=== PATIENT | female | born 1950 | race Caucasian/White ===

== ENCOUNTER 2018-08-08 08:59 | Emergency (ER) | payer OTHER ==
[2018-08-08 09:10] VITALS: BP 156/91; PULSE 72; TEMP 98.1; BMI 32.1
[2018-08-08] MEDS ORDERED: HEP B VIR RECOMB/HIB CONJ-MENG 0.5 ML VIAL IM ONE (09:20)
[2018-08-08] MEDS ORDERED: HEPATITIS B VIRUS VACCINE-PF 20 MCG/1ML PRE-FILLED SYRINGE IM ONE (09:29)
--- NOTE | 2018-08-08 09:29 | PDOC ---
Post Exposure HPI - General Chief Complaint: Blood/Body Fluid Exposure SJR Stated Complaint: STUCK WITH A NEEDLE Time Seen by Provider: 08/08/18 09:19 History Source: Patient Exam Limitations: Clinical Condition - History of Present Illness Initial Comments: 08/08/18 09:24 Patient with no significant past medical history fully immunized with negative immunity to hepatitis B present for hepatitis vaccines status post accidentally sticking herself with a needle while drawing blood from a . Patient reported mother's blood work shows negative HIV but hepatitis panel is not back and patient recent lab work shows nonimmune to hepatitis B. Report no bleeding to injury site 08/08/18 09:34 Timing: just prior to arrival Past History - Past Medical History Allergies/Adverse Reactions: Allergies Allergy/AdvReac Type Severity Reaction Status Date / Time No Known Allergies Allergy Verified 03/21/12 07:56 Home Medications: Ambulatory Orders No Home Medications 0 dose .ROUTE UTDICT 03/21/12 COPD: No Diabetes: No - Surgical History Cardiac Surgery: No Cholecystectomy: No Neurologic Surgery: Yes (myoectomy) - Immunization History Immunization Up to Date: No - Suicide/Smoking/Psychosocial Hx Smoking Status: No Smoking History: Never smoked Have you smoked in the past 12 months: No Number of Cigarettes Smoked Daily: 12 Information on smoking cessation initiated: No Hx Alcohol Use: No Drug/Substance Use Hx: No General Medical PMHX - Other General PMHX Cardiac Arrhythmia: No Peripheral Vascular Disease: No Review of Systems - Review of Systems Able to Perform ROS?: Yes Is the patient limited Mohawk proficient: No Constitutional: No: Chills, Fever, Malaise HEENTM: No: Symptoms Reported Respiratory: No: Symptoms reported Cardiac (ROS): No: Symptoms Reported ABD/GI: No: Symptoms Reported Musculoskeletal: No: Symptoms Reported Integumentary: Yes: Other (accidental sticking right thumb with needle. no bleeding) All Other Systems: Reviewed and Negative *Physical Exam - Vital Signs Last Vital Signs Temp Pulse Resp BP Pulse Ox 98.1 F 72 16 156/91 100 08/08/18 09:06 08/08/18 09:06 08/08/18 09:06 08/08/18 09:06 08/08/18 09:06 - Physical Exam Comments: 08/08/18 09:27 GENERAL: Well developed, well nourished. Awake and alert. No acute distress. HEENT: Normocephalic, atraumatic. PERRLA, EOMI. No conjunctival pallor. Sclera are non-icteric. Moist mucous membranes. Oropharynx is clear. NECK: Supple. Full ROM. CARDIOVASCULAR: Regular rate and rhythm. No murmurs, rubs, or gallops. Distal pulses are 2+ and symmetric. PULMONARY: No evidence of respiratory distress. Lungs clear to auscultation bilaterally. No wheezing, rales or rhonchi. ABDOMINAL: Soft. Non-tender. Non-distended. No rebound or guarding. No organomegaly. Normoactive bowel sounds. SKIN: no evidence of skin penetration of needle. no bleeding from needle stick site. Warm and dry. NEUROLOGICAL: Alert, awake, appropriate. Gait is normal without ataxia. PSYCHIATRIC: Cooperative. Good eye contact. Appropriate mood General Appearance: Yes: Nourished, Appropriately Dressed. No: Apparent Distress Post Exposure - ED Protocol - Exposure Treatment Washing/Decontamination: Soap/Water Source Patient HIV Status:: HIV Negative Is PEP indicated?: No Prophylaxis for HIV discussed?: Yes Prophylaxis given?: No Prophylaxis refused?: No Drug(s) Information Sheets given:: Yes Baseline bloods drawn prophylaxis:(use *Exposure-Hosp Emp): No Additional Treatment:: HBIG - Referrals Employee Referred to Employee Health:: Yes (f/u 1 month for second dose) City Worker referred to Infection Control Dept.: No Medical Decision Making - Medical Decision Making 08/08/18 09:34 Patient with no significant past medical history fully immunized with negative immunity to hepatitis B present for hepatitis vaccines status post accidentally sticking herself with a needle while drawing blood from a . Patient reported mother's blood work shows negative HIV but hepatitis panel is not back and patient recent lab work shows nonimmune to hepatitis B. Patient declined HIV prophylaxis as baby's mother is HIV negative and baseline blood draw. Hepatitis vaccine given. Patient to follow-up with no patient health in one month for second dose of hepatitis B vaccine. *DC/Admit/Observation/Transfer Diagnosis at time of Disposition: Exposure to blood or body fluid - Discharge Dispostion Disposition: HOME Condition at time of disposition: Stable Decision to Admit order: No - Referrals - Patient Instructions Printed Discharge Instructions: How to Handle Body Fluid Exposure -- Healthcare Worker Additional Instructions: Follow-up with occupational health in one month for second dose of hepatitis B vaccine.
== END 2018-08-08 10:11 | disposition home or self-care (01) ==
LOC: JERFT 08:59
PROC: 3E0234Z Introduction of Serum, Toxoid and Vaccine into Muscle, Percutaneous Approach (ICD-10-PCS; principal; 2018-08-08)
DX: Z77.21 Contact with and (suspected) exposure to potentially hazardous body fluids (principal); S61.031A Puncture wound without foreign body of right thumb without damage to nail, initial encounter; W46.1XXA Contact with contaminated hypodermic needle, initial encounter; Y93.F9 Activity, other caregiving; Y92.238 Other place in hospital as the place of occurrence of the external cause; Y99.0 Civilian activity done for income or pay; Z23 Encounter for immunization
CPT/HCPCS: 99281-25